=== PATIENT | male | born 1935 | race Two or more races ===

== ENCOUNTER → 2018-07-26 | Outpatient (CLI) | payer OTHER ==
--- NOTE | 2018-07-26 15:20 | PCVCIMAG ---
APPROVED REPORT Study performed: 07/26/2018 12:49:51 EXAM: Comprehensive 2D, Doppler, and color-flow Echocardiogram Patient Location: Echo lab Room #: 3Status: routine BSA: 1.69 HR: 71 bpmBP: 160/64 mmHg Rhythm: NSR with PVC's Other Information Study Quality: Adequate Risk Factors: Cardiac Risk Factors: HTN Indications Murmur Dyspnea 2D Dimensions IVSd: 11.24 (7-11mm)LVOT Diam: 18.00 (18-24mm) LVDd: 46.61 mm PWd: 11.83 (7-11mm)Ascending Ao: 26.09 (22-36mm) LVDs: 34.82 (25-40mm) Left Atrium: 36.59 (27-40mm) Aortic Root: 29.81 mm LV Single Plane 4CH: 54.75 % LV Single Plane 2CH: 60.59 % Biplane EF: 61.5 % Volumes Left Atrial Volume (Systole) Single Plane 4CH: 46.47 mLSingle Plane 2CH: 28.30 mL LA ESV Index: 24.00 mL/m2 Aortic Valve AoV Peak Zaid.: 1.67 m/s AO Peak Gr.: 12.15 mmHgLVOT Max P.97 mmHg LVOT Max V: 1.11 m/s BHUMI Vmax: 1.78 cm2 AI Vmax: 3.63 m/s AI [place]: 1.89 m/s2 AI PHT: 557.54 ms Mitral Valve E/A Ratio: 0.7 MV Decel. Time: 284.18 ms MV E Max Zaid.: 0.65 m/s MV A Zaid.: 0.99 m/s MV PHT: 82.41 ms IVRT: 48.44 ms TDI E/Lateral E': 10.83E/Medial E': 9.29 Medial E' Zaid.: 0.07 m/s Lateral E' Zaid.: 0.06 m/s Pulmonary Valve PV Peak Zaid.: 1.29 m/sPV Peak Gr.: 6.68 mmHg NM End Vmax: 1.10 m/s Pulmonary Vein P Vein S: 0.43 m/sP Vein A: 0.25 m/s P Vein D: 0.44 m/sP Vein A Dur.: 90.0 msec P Vein S/D Ratio: 0.98 Tricuspid Valve TR Peak Zaid.: 2.66 m/sRAP Estimate: 7.00 mmHg TR Peak Gr.: 28.22 mmHg PA Pressure: 35.00 mmHg Left Ventricle The left ventricle is normal size. There is normal LV segmental wall motion. Borderline concentric left ventricular hypertrophy. Left ventricular systolic function is normal. The left ventricular ejection fraction is within the normal range. LVEF is 55-60%. Grade I - abnormal relaxation pattern. Right Ventricle The right ventricle is normal size. The right ventricular systolic function is normal. Atria The left atrium size is normal. The right atrium size is normal. Aortic Valve The Aortic valve is mildly sclerotic. Mild aortic regurgitation. There is no aortic valvular stenosis. Mitral Valve Mild mitral annular calcification. Trace mitral regurgitation. No evidence of mitral valve stenosis. Tricuspid Valve The tricuspid valve is normal in structure. Trace to mild tricuspid regurgitation. Pulmonary artery pressure is 35 mmHg. Pulmonic Valve The pulmonary valve is normal in structure. Trace to mild pulmonic regurgitation. Great Vessels The aortic root is normal in size. IVC is normal in size and collapses >50% with inspiration. Pericardium There is no pericardial effusion. <Conclusion> Left ventricular systolic function is normal. There is normal LV segmental wall motion. LVEF is 55-60%. Mild diastolic dysfunction The aortic valve is mildly sclerotic. Mild aortic regurgitation, no stenosis. Mild mitral annular calcification. Trace mitral regurgitation. Trace to mild tricuspid regurgitation. Pulmonary artery pressure of 35 mmHg. There is no pericardial effusion.
== END | disposition home or self-care (01) ==
LOC: PCVCIMAG 13:00
PROVIDERS: ATTEND Internal Medicine
DX: I35.1 Nonrheumatic aortic (valve) insufficiency (principal); R01.1 Cardiac murmur, unspecified; R06.02 Shortness of breath
CPT/HCPCS: 93306

== ENCOUNTER → 2019-01-14 | Outpatient (CLI) | payer OTHER ==
[~2019-01-14] MED LIST: REGADENOSON 0.4 MG/5 ML DISP.SYRIN. IV ONE
--- NOTE | 2019-01-14 14:53 | PCVCIMAG ---
APPROVED REPORT Imaging Protocol: Rest Tc-99m/Stress Tc-99m 1 day Study performed: 01/14/2019 10:03:39 Indication: Dyspnea, Syncope Patient Location: Out-Patient Stress Nurse: Joana Menchaca RN, Lesia Lynn RN [place] Tech:[id number] SilvaMT Ht: 5 ft 1 in Wt: 136 lbs BSA: 1.60 m2 HR: 75 bpm BP: 137/60 mmHg BMI: 25.6 Rhythm: AV paced rhythm with PVC's Medical History Medical History: HTN, Hyperlipidemia, COPD, Former Smoker Medications: Albuterol, Amlodipine, ASA, Irbesartan-HCTZ, Singulair, Simvastatin, Flomax Allergies: No known drug allergies Cardiac Risk Factors: Age Pretest Chest Pain Characteristics: No chest pain Exercise History: Physically active Resting Data Rest SPECT myocardial perfusion imaging was performed in supine position 45 minutes following the intravenous injection of 10.6 mCi of Tc-99m Sestamibi. Time of rest injection: 0945 Administration Route: IV Administration Site: Right AC Pharmacologic Stress Pharmacologic stress test was performed by injecting Regadenoson 0.4 mg IV push over 10-15 seconds immediately followed by the intravenous injection of 33.6 mCi of Tc-99m Sestamibi. Time of stress injection: 1100 Date: 01/14/2019 Administration Route: IV Administration Site: Right AC Gated Stress SPECT was performed 45 minutes after stress injection. The images were gated to evaluate regional wall motion and calculate left ventricular ejection fraction. Stress Test Details Stress Test: Pharmacologic stress testing performed using 0.4 mg of regadenoson per 5 mL given IV over 10 seconds. Reason for pharmacologic stress test: PPM. HRMax Heart Rate (APMHR): 136 bpm Resting HR: 75 bpmTarget HR (85% APMHR): 115 bpm Max HR Achieved: 85 bpm % of APMHR: 62 Recovery HR: 80 bpm BP Resting BP: 137/60 mmHg Max BP: 127/60 mmHg Recovery BP: 111/56 mmHg ECG Resting ECG: AV paced rhythm with PVC's Stress ECG: AV paced rhythm with PVC's ST Change: Nondiagnostic V-pacing or LBBB Arrhythmia: PVC's Recovery ECG: AV paced rhythm with PVC's Recovery ST Change: Nondiagnostic V-pacing or LBBB Clinical Reason for Termination: Completed protocol Stress Symptoms: Abdominal discomfort, Dyspnea, Dizziness, Lightheaded Symptoms resolved with caffeine.Symptoms resolved with caffeine. Stress ECG Conclusion Clinical: Non-ischemic Non-diagnostic electrocardiogram due to ventricular pacing Study Quality Study: Good Study Data Post stress, the left ventricular ejection was 64%.. SSS: 0 SRS: 1 SDS: 0 TID = 1.11. Perfusion No evidence of stress induced ischemia or prior myocardial infarction. Wall Motion Normal left ventricular size and function with no regional wall motion abnormalities. Nuclear Conclusion No evidence of stress induced ischemia or prior myocardial infarction. Normal left ventricular size and function with no regional wall motion abnormalities. Post stress, the left ventricular ejection was 64%. No prior study available for comparison. Interpreted by: Man Braxton MD Electronically Approved: 01/14/2019 13:34:21 <Conclusion> Clinical: Non-ischemic Non-diagnostic electrocardiogram due to ventricular pacing
== END | disposition home or self-care (01) ==
LOC: PCVCIMAG 09:34
PROVIDERS: ATTEND Internal Medicine
DX: R55 Syncope and collapse (principal); R06.09 Other forms of dyspnea; J44.9 Chronic obstructive pulmonary disease, unspecified; I10 Essential (primary) hypertension; E78.5 Hyperlipidemia, unspecified; Z95.0 Presence of cardiac pacemaker; Z87.891 Personal history of nicotine dependence
CPT/HCPCS: 78452; 93017; A9500; J2785